=== PATIENT | female | born 1970 | race Caucasian/White ===

== ENCOUNTER 2016-11-09 21:28 | Emergency (ER) | payer SELFPAY ==
[2016-11-09 21:52] VITALS: BP 122/85
[2016-11-09] MEDS ORDERED: CEPHALEXIN 500 MG CAPSULE PO ONE (23:39)
[2016-11-09] MEDS ORDERED: DOXYCYCLINE HYCLATE 100 MG TABLET PO ONE (23:39)
--- NOTE | 2016-11-09 23:41 | ER Document Report ---
ED General - General Chief Complaint: Abscess Stated Complaint: POSSIBLE ABSCESS RIGHT ARMPIT Time Seen by Provider: 11/09/16 22:47 Notes: Patient is a 46-year-old female without past medical history who presents with concerns of right axillary abscess with associated cellulitis. Patient states that she had an area of swelling to her right axilla for the past several days as of now developed a progressively worsening area of erythema associated with the area of swelling. Denies any history of similar symptoms in the past. States she came to emergency department when she noticed the area of redness was spreading. She denies any associated fever or constitutional symptoms. Does describe pain there is a severe, constant, throbbing pain. She has not seen her primary care doctor regarding today's concerns. Nothing improves or worsens her symptoms. TRAVEL OUTSIDE OF THE [place] IN LAST 30 DAYS: No - Related Data Allergies/Adverse Reactions: Sulfa (Sulfonamide Antibiotics) Allergy (Verified 07/16/15 21:28) Past Medical History - General Information source: Patient - Social History Smoking Status: Never Smoker Frequency of alcohol use: None Drug Abuse: None Lives with: Spouse/Significant other Family History: Reviewed & Not Pertinent Patient has suicidal ideation: No Patient has homicidal ideation: No Renal/ Medical History: Reports: Hx Ectopic . Denies: Hx Peritoneal Dialysis Malignancy Medical History: Reports: Hx Skin Cancer Past Surgical History: Reports: Hx Gynecologic Surgery - fallopian tubes removed Review of Systems - Review of Systems Notes: Constitutional: Negative for fever. HENT: Negative for sore throat. Eyes: Negative for visual changes. Cardiovascular: Negative for chest pain. Respiratory: Negative for shortness of breath. Gastrointestinal: Negative for abdominal pain, vomiting or diarrhea. Genitourinary: Negative for dysuria. Musculoskeletal: Negative for back pain. Skin: Positive for rash. Neurological: Negative for headaches, weakness or numbness. 10 point ROS negative except as marked above and in HPI. Physical Exam - Vital signs Vitals: Temp Pulse Resp BP Pulse Ox 98.8 F 65 16 122/85 98 11/09/16 21:49 11/09/16 21:49 11/09/16 21:49 11/09/16 21:49 11/09/16 21:49 Interpretation: Normal Notes: PHYSICAL EXAMINATION: GENERAL: Well-appearing, well-nourished and in no acute distress. HEAD: Atraumatic, normocephalic. EYES: sclera anicteric, conjunctiva are normal. ENT: Moist mucous membranes. NECK: Normal range of motion LUNGS: Normal work of breathing HEART: 2+ radial pulses bilaterally EXTREMITIES: no pitting or edema. No cyanosis. NEUROLOGICAL: No focal neurological deficits. Moves all extremities spontaneously and on command. PSYCH: Normal mood, normal affect. SKIN: Warm, Dry, normal turgor, there is a 0.5 x 0.5 abscess to the lateral right axilla with a 1 x 2 cm area of associated erythema Course - Re-evaluation Re-evalutation: 11/09/16 23:37 Patient presents with a right axillary abscess with surrounding cellulitis. The abscess was incised and drained with expression of 1 cc of purulent material. The patient will be started on doxycycline and Keflex for strep and MRSA coverage. Patient is otherwise well in appearance, vitals within normal limits, no acute distress. She does not meet sepsis criteria. No indication for labs or IV antibiotics with admission. At this time will discharge with return precautions and follow-up recommendations. Verbal discharge instructions given a the bedside and opportunity for questions given. Medication warnings reviewed. Patient is in agreement with this plan and has verbalized understanding of return precautions and the need for primary care follow-up in the next 24-72 hours. - Vital Signs Vital signs: Temp Pulse Resp BP Pulse Ox 98.8 F 65 16 122/85 98 11/09/16 21:49 11/09/16 21:49 11/09/16 21:49 11/09/16 21:49 11/09/16 21:49 Procedures - Incision and Drainage Right Arm Time completed: 23:39 Type: Simple Anesthetic type: 1% Lidocaine mL's of anesthetic: 1 Blade size: 11 I&D procedure: Chlorprep applied Incision Method: Incision made by scalpel Amount/type of drainage: 1 cc purulent material Discharge - Discharge Clinical Impression: Abscess of right axilla, Cellulitis of right arm Condition: Good Disposition: HOME, SELF-CARE Additional Instructions: The rash is likely due to infection of your skin. You need to take the antibiotics as prescribed. Do not stop even if the rash goes away until you have completed all the antibiotics. The area of redness was traced out here in the emergency department with a marking pen. You need to return to emergency department if the redness spreads outside of this area by more than 2 cm in any direction. You should also return if you develop fevers with temperature greater than 101, persistent vomiting, worsening pain, or have any other symptoms that are concerning to you. Prescriptions: Cephalexin Monohydrate [Keflex 500 mg Capsule] 500 mg PO QID #28 capsule Doxycycline Hyclate 100 mg PO BID #14 tablet
== END 2016-11-10 00:02 | disposition home or self-care (01) ==
LOC: ER 21:28
PROC: 0H9BXZZ Drainage of Right Upper Arm Skin, External Approach (ICD-10-PCS; principal; 2016-11-09)
DX: L02.411 Cutaneous abscess of right axilla (principal); L03.111 Cellulitis of right axilla; M79.89 Other specified soft tissue disorders; R50.9 Fever, unspecified
CPT/HCPCS: 99283

== ENCOUNTER 2017-08-02 18:52 | Emergency (ER) | payer SELFPAY ==
[2017-08-02] MEDS ORDERED: METOCLOPRAMIDE HCL 10 MG TABLET PO ONE (20:58)
[2017-08-02] MEDS ORDERED: ACETAMINOPHEN 325 MG TABLET PO ONE (20:58)
--- NOTE | 2017-08-02 21:04 | ER Document Report ---
ED Fall - General Chief Complaint: Fall Stated Complaint: FALL/LEG INJURY Time Seen by Provider: 08/02/17 20:37 Mode of Arrival: Ambulatory Information source: Patient TRAVEL OUTSIDE OF THE [place] IN LAST 30 DAYS: No - HPI Patient complains to provider of: fall, headache, right leg pain Notes: Patient is here with complaints of headache and right leg pain after falling. She states that she was seen on a chair trying to kill mosquito last evening when she swallowed she fell backwards and hit the right aspect of her posterior head on the corner of a shower. She is not quite sure if she had loss of consciousness but from what she describes to me, it does not sound as if she did. She states that she has had a headache and nausea with blurred vision since this occurred. She denies being on any blood thinning medications. She has had no vomiting, but states that she cannot vomit due to prior Regina fundoplication. She denies any neck, back, chest, abdominal pain. She denies any unilateral numbness, tingling, weakness. She denies any fevers. She also complains of pain to the right posterior knee. She is able to ambulate and walk but with pain. No redness or swelling. Patient's headache is worse with light as well as walking, her right knee pain is worse with walking. Nothing seems to make her symptoms better. No other complaints or no other injuries at this time. - Related data Allergies/Adverse Reactions: Sulfa (Sulfonamide Antibiotics) Allergy (Verified 07/16/15 21:28) Past Medical History - Social History Smoking Status: Never Smoker Chew tobacco use (# tins/day): No Drug Abuse: None Family History: Reviewed & Not Pertinent Patient has suicidal ideation: No Patient has homicidal ideation: No Renal/ Medical History: Reports: Hx Ectopic . Denies: Hx Peritoneal Dialysis Malignancy Medical History: Reports: Hx Skin Cancer Past Surgical History: Reports: Hx Appendectomy, Hx Gynecologic Surgery - ectopic-tubal removal x2, Hx Orthopedic Surgery - left elbow, eye surgery Review of Systems - Review of Systems -: Yes All other systems reviewed and negative Physical Exam - Vital signs Vitals: Temp Pulse Resp BP Pulse Ox 97.7 F 66 18 122/71 99 08/02/17 19:05 08/02/17 19:05 08/02/17 19:05 08/02/17 19:05 08/02/17 19:05 - Notes Notes: GENERAL: alert, cooperative, nontoxic, no distress. HEAD: normocephalic, atraumatic EYES: conjunctiva pink without discharge, no external redness or swelling. Right pupil slightly larger than the left. EOM'S INTACT EARS: no external swelling, no external redness. No hemotympanum NOSE: atraumatic, no external swelling. No bleeding MOUTH/THROAT: mucous membranes moist and pink, posterior pharynx without erythema, swelling, exudate. No trismus or drooling. NECK: soft, supple, full range of motion, no meningismus. No midline tenderness step-offs or crepitus to palpation of the cervical spine. CHEST: no distress, lungs clear and equal throughout. No wheezing, rales, rhonchi. CARDIAC: regular rate and rhythm, no murmur, normal capillary refill, normal pulses. No peripheral edema noted. ABDOMEN: Soft, nontender. No ecchymosis. BACK: full range of motion, no CVA tenderness. No midline tenderness step-offs or crepitus to palpation of the thoracic or lumbar spine. EXTREMITIES: full range of motion of all extremities. No redness, no swelling. Tenderness to palpation of the right posterior knee. No swelling. No redness. No anterior tenderness. Full range of motion. No ligament instability. Normal pulse and sensation distally. NEURO: alert and oriented x 3, no focal deficits, full range of motion of all extremities. Cranial nerves II through XII are grossly intact. Normal sensation bilaterally. Normal strength bilaterally. PYSCH: appropriate mood, affect. Patient is cooperative. SKIN: pink, warm, dry, no rash. Course - Re-evaluation Re-evalutation: 08/02/17 22:43 Patient is nontoxic appearing with stable vitals. The patient fell hitting her head and injuring her leg last evening. She continues to have headache, blurred vision and nausea. CT of the brain shows no acute abnormality per the radiologist. X-rays of the right knee show no acute abnormality. The patient has a mild concussion. Patient will be discharged home with a prescription for Voltaren as well as Zofran. She is instructed to rest her brain as much as possible. Follow-up with her doctor if not better in 1 week, sooner for increasing pain, fever, numbness, tingling, weakness, persistent vomiting, or for any further concerns. The patient is noted to have elevated blood pressure during today's emergency department visit. The patient was informed of this finding. The patient was instructed that this may be related to pre-hypertension and requires further evaluation with a primary care provider. The patient has no hypertensive symptoms at this time. The patient's emergency department workup and current diagnosis were explained to the patient and or family. Follow-up instructions were provided. Medications if prescribed were discussed. Instructions for when to return to the emergency department including specific worrisome symptoms were discussed with the patient and/or family. - Vital Signs Vital signs: Temp Pulse Resp BP Pulse Ox 97.7 F 66 18 122/71 99 08/02/17 19:05 08/02/17 19:05 08/02/17 19:05 08/02/17 19:05 08/02/17 19:05 - Diagnostic Test Radiology reviewed: Image reviewed, Reports reviewed - CT brain negative, x-ray right knee negative. Discharge - Discharge Clinical Impression: Head injury, closed, with concussion Qualifiers: Encounter type: initial encounter Loss of consciousness presence/duration: without LOC Qualified Code(s): S06.0X0A - Concussion without loss of consciousness, initial encounter Right knee sprain Qualifiers: Encounter type: initial encounter Involved ligament of knee: unspecified ligament Qualified Code(s): S83.91XA - Sprain of unspecified site of right knee , initial encounter Condition: Stable Disposition: HOME, SELF-CARE Instructions: Ice & Elevation ([facility]), Sprained Knee ([facility]), Concussion ([facility]) Additional Instructions: Take medication as prescribed. Drink plenty of fluids. Ice to sore area. Rest her brain as much as possible. Follow-up if not better in 1 week, sooner for worsening pain, fever, persistent vomiting, numbness, tingling, weakness, chest pain, shortness of breath, any further concerns. Your blood pressure was elevated during today's visit. Have this rechecked with your doctor. Prescriptions: Diclofenac Sodium [Voltaren 50 Mg Tablet.] 50 mg PO BID #20 tablet. Ondansetron HCl [Zofran 4 mg Tablet] 1 - 2 tab PO Q4H PRN #10 tablet PRN Reason: Forms: Elevated Blood Pressure, Smoking Cessation Education, Return to Work Referrals: [facility] [Provider Group] - Follow up as needed
--- NOTE | 2017-08-02 22:23 | RADIOLOGY REPORT (SQ) ---
EXAM DESCRIPTION: KNEE RIGHT 4 VIEWS COMPLETED DATE/TIME: 08/02/2017 9:53 pm REASON FOR STUDY: fall, posterior pain COMPARISON: None. NUMBER OF VIEWS: Four views. TECHNIQUE: AP, lateral, and both oblique radiographic images acquired of the right knee. LIMITATIONS: None. FINDINGS: MINERALIZATION: Normal. BONES: No acute fracture or dislocation. No worrisome bone lesions. JOINT: No effusion. SOFT TISSUES: No soft tissue swelling. No radio-opaque foreign body. OTHER: No other significant finding. IMPRESSION: NO RADIOGRAPHIC EVIDENCE OF ACUTE INJURY. TECHNICAL DOCUMENTATION: JOB ID: [id number] [place]-72 2010 [employer]- All Rights Reserved Reading location - IP/workstation name: [employer]
--- NOTE | 2017-08-02 22:27 | RADIOLOGY REPORT (SQ) ---
EXAM DESCRIPTION: CT HEAD WITHOUT COMPLETED DATE/TIME: 08/02/2017 10:05 pm REASON FOR STUDY: fall, head injury, nausea, headache COMPARISON: None. TECHNIQUE: Axial images acquired through the brain without intravenous contrast. Images reviewed wi th bone, brain and subdural windows. Images stored on PACS. All CT scanners at this facility use dose modulation, iterative reconstruction, and/or weight based d osing when appropriate to reduce radiation dose to as low as reasonably achievable (ALARA). [facility]: Dose Right [facility]: CareDose [facility]: Dose Right [facility]: Teradose 4D [facility]: Smart Subway RADIATION DOSE: CT Rad equipment meets quality standard of care and radiation dose reduction techniq ues were employed. CTDIvol: 53.2 mGy. DLP: 937 mGy-cm. mGy. LIMITATIONS: None. FINDINGS: VENTRICLES: Normal size and contour. CEREBRUM: No masses. No hemorrhage. No midline shift. No evidence for acute infarction. Normal gra y/white matter differentiation. No areas of low density in the white matter. CEREBELLUM: No masses. No hemorrhage. No alteration of density. No evidence for acute infarction. EXTRAAXIAL SPACES: No fluid collections. No masses. ORBITS AND GLOBE: No intra- or extraconal masses. Normal contour of globe without masses. Chronic s urgical changes in the right orbital floor. CALVARIUM: No fracture. PARANASAL SINUSES: No fluid or mucosal thickening. SOFT TISSUES: No mass or hematoma. OTHER: No other significant finding. IMPRESSION: No acute intracranial findings. EVIDENCE OF ACUTE STROKE: NO. COMMENT: Quality ID # [id number]: Final reports with documentation of one or more dose reduction techniques (e.g., Automated exposure control, adjustment of the mA and/or kV according to patient size, use of iterative reconstruction technique) TECHNICAL DOCUMENTATION: JOB ID: [id number] [place]-72 2010 [employer]- All Rights Reserved Reading location - IP/workstation name: [email or web address]
[2017-08-02 23:27] VITALS: BP 111/71
== END 2017-08-02 23:27 | disposition home or self-care (01) ==
LOC: ER 18:52
DX: S83.91XA Sprain of unspecified site of right knee, initial encounter (principal); S06.0X0A Concussion without loss of consciousness, initial encounter; R51 Headache; M79.604 Pain in right leg; W01.198A Fall on same level from slipping, tripping and stumbling with subsequent striking against other object, initial encounter; Z88.2 Allergy status to sulfonamides
CPT/HCPCS: 70450; 99284

== ENCOUNTER 2018-12-15 21:15 | Emergency (ER) | payer OTHER ==
[2018-12-15 22:07] LABS: ABSOLUTE BASOPHILS # (AUTO) 0.1 10^3/uL (0.0-0.2); ABSOLUTE EOSINOPHILS # (AUTO) 0.2 10^3/uL (0.0-0.6); ABSOLUTE LYMPHOCYTES (AUTO) 2.3 10^3/uL (0.5-4.7); ABSOLUTE MONOCYTES (AUTO) 0.6 10^3/uL (0.1-1.4); ABSOLUTE NEUT (AUTO) 7.7 10^3/uL (1.7-8.2); BASOPHILS % (AUTO) 0.5 % (0-2); EOSINOPHILS % (AUTO) 1.4 % (0-6); HEMATOCRIT 30.2 % (36.0-47.0); HEMOGLOBIN 10.4 g/dL (12.0-15.5); LYMPHOCYTES % (AUTO) 21.3 % (13-45); MEAN CORPUSCULAR HEMOGLOBIN 30.1 pg (27.0-33.4); MEAN CORPUSCULAR HGB CONC 34.4 g/dL (32.0-36.0); MEAN CORPUSCULAR VOLUME 88 fl (80-97); MONOCYTES % (AUTO) 5.2 % (3-13); PLATELET COUNT 298 10^3/uL (150-450); RED BLOOD COUNT 3.45 10^6/uL (3.72-5.28); RED CELL DISTRIBUTION WIDTH 12.1 % (11.5-14.0); SEGMENTED NEUTROPHILS % (AUTO) 71.6 % (42-78); TOTAL CELLS COUNTED % (AUTO) 100 %; WHITE BLOOD COUNT 10.8 10^3/uL (4.0-10.5)
[2018-12-15 22:14] LABS: ALBUMIN 3.7 g/dL (3.5-5.0); ALKALINE PHOSPHATASE 39 U/L (38-126); ANION GAP 9 (5-19); ASPARTATE AMINO TRANSFERASE 19 U/L (14-36); BILIRUBIN,DIRECT 0.1 mg/dL (0.0-0.4); BILIRUBIN,TOTAL 0.5 mg/dL (0.2-1.3); BLOOD UREA NITROGEN 42 mg/dL (7-20); CARBON DIOXIDE 24 mmol/L (22-30); CHLORIDE 103 mmol/L (98-107); CREATINE KINASE 118 U/L (30-135); GLUCOSE 122 mg/dL (75-110); POTASSIUM 4.1 mmol/L (3.6-5.0); TOTAL PROTEIN 6.3 g/dL (6.3-8.2)
[2018-12-15] MEDS: NORMAL SALINE 1000 ML 1,000 ML IV PRN ×2 (22:14→23:08)
--- NOTE | 2018-12-15 22:45 | RADIOLOGY REPORT (SQ) ---
XR CHEST 1 VIEW EXAM DATE: 12/15/2018 12:00 AM CDT HISTORY: Syncope. COMPARISON: 07/16/2015 FINDINGS: The heart size is within normal limits. No consolidation, pleural effusion, or pneumothorax is seen. The bony thorax is intact. IMPRESSION: No evidence of acute cardiopulmonary disease.
[2018-12-15 23:38] LABS: APPEARANCE,URINE CLEAR; BILIRUBIN,URINE NEGATIVE (NEGATIVE); COLOR,URINE YELLOW; GLUCOSE, URINE NEGATIVE (NEGATIVE); KETONES,URINE 20 mg/dL (NEGATIVE); LEUKOCYTE ESTERASE,URINE NEGATIVE (NEGATIVE); NITRITE,URINE NEGATIVE (NEGATIVE); PROTEIN,URINE NEGATIVE (NEGATIVE); URINE SPECIFIC GRAVITY 1.023; UROBILINOGEN,URINE NEGATIVE mg/dL (<2.0)
[2018-12-16] MEDS ORDERED: PANTOPRAZOLE SODIUM 40 MG VIAL IV ONE (00:17)
[2018-12-16] MEDS ORDERED: NORMAL SALINE 1000 ML 1,000 ML IV ONE (00:18)
[2018-12-16 01:00] LABS: ABSOLUTE LYMPHOCYTES (AUTO) 1.4 10^3/uL (0.5-4.7); ABSOLUTE MONOCYTES (AUTO) 0.3 10^3/uL (0.1-1.4); ABSOLUTE NEUT (AUTO) 7.6 10^3/uL (1.7-8.2); BASOPHILS % (AUTO) 0.5 % (0-2); EOSINOPHILS % (AUTO) 0.4 % (0-6); HEMATOCRIT 26.7 % (36.0-47.0); LYMPHOCYTES % (AUTO) 14.6 % (13-45); MEAN CORPUSCULAR HEMOGLOBIN 29.9 pg (27.0-33.4); MEAN CORPUSCULAR HGB CONC 33.9 g/dL (32.0-36.0); MEAN CORPUSCULAR VOLUME 88 fl (80-97); MONOCYTES % (AUTO) 3.1 % (3-13); PLATELET COUNT 167 10^3/uL (150-450); RED BLOOD COUNT 3.02 10^6/uL (3.72-5.28); RED CELL DISTRIBUTION WIDTH 12.6 % (11.5-14.0); SEGMENTED NEUTROPHILS % (AUTO) 81.4 % (42-78); TOTAL CELLS COUNTED % (AUTO) 100 %; WHITE BLOOD COUNT 9.3 10^3/uL (4.0-10.5)
[2018-12-16] MEDS ORDERED: PANTOPRAZOLE SODIUM 40 MG VIAL IV PRN (01:16)
[2018-12-16 01:25] LABS: INTERNATIONAL RATION (INR) 1.16; PROTHROMBIN TIME 14.9 SEC (11.4-15.4)
[2018-12-16 01:26] LABS: PARTIAL THROMBOPLASTIN TIME 24.1 SEC (23.5-35.8)
[2018-12-16 04:48] VITALS: BP 112/50
--- NOTE | 2018-12-16 04:52 | ER Document Report ---
Entered by CHANDRA PENA SCRIBE 12/16/18 0017 Acting as scribe for:GURU TONEY DO ED Dizziness/Weakness - General Chief Complaint: Fainting Stated Complaint: DIZZINESS Time Seen by Provider: 12/15/18 21:53 Primary Care Provider: AMY MENDOZA DO [Primary Care Provider] - Follow up as needed Mode of Arrival: Ambulatory Information source: Patient Notes: 48 year old female that presents to the emergency department today with complaints of multiple episodes of dizziness/lightheadedness today. Patient mentions that she went to take the trash out today and "everything flushed out of her body". Patient states that she has a chair right inside her front door. Patient states she was returning from taking the trash out and "the next thing she remembers is sitting in the chair". Patient states she has had loose black stool today. Patient denies any usage of blood thinning medications or pain of any type. Apparently had surgery on her esophagus 15 to 20 years ago and had a procedure in which she states that she cannot vomit. Sounds like a Regina fundoplication. Patient is not sure what the name of this procedure was. TRAVEL OUTSIDE OF THE [place] IN LAST 30 DAYS: No - Related Data Allergies/Adverse Reactions: Sulfa (Sulfonamide Antibiotics) Allergy (Verified 07/16/15 21:28) Past Medical History - General Information source: Patient - Social History Smoking Status: Never Smoker Cigarette use (# per day): No Frequency of alcohol use: None Drug Abuse: None Family History: Reviewed & Not Pertinent Patient has suicidal ideation: No Patient has homicidal ideation: No Renal/ Medical History: Reports: Hx Ectopic Malignancy Medical History: Reports: Hx Skin Cancer Past Surgical History: Reports: Hx Appendectomy, Hx Gynecologic Surgery - ectopic-tubal removal x2, Hx Orthopedic Surgery - left elbow, eye surgery Review of Systems - Review of Systems Constitutional: No symptoms reported EENT: No symptoms reported Cardiovascular: See HPI, Syncope, Dizziness, Lightheaded Respiratory: No symptoms reported Gastrointestinal: See HPI, Diarrhea, Nausea, Black stools. denies: Abdominal pain, Vomiting Genitourinary: No symptoms reported Female Genitourinary: No symptoms reported Musculoskeletal: No symptoms reported Skin: No symptoms reported Hematologic/Lymphatic: No symptoms reported Neurological/Psychological: No symptoms reported -: Yes All other systems reviewed and negative Physical Exam - Vital signs Vitals: Temp Pulse Resp BP Pulse Ox 97.5 F 81 14 96/53 L 100 12/15/18 21:26 12/15/18 21:26 12/15/18 21:26 12/15/18 21:26 12/15/18 21:26 Interpretation: Hypotensive - General General appearance: Lethargic In distress: Moderate - HEENT Head: Normocephalic, Atraumatic Mucous membranes: Dry - Respiratory Respiratory status: No respiratory distress Breath sounds: Normal - Cardiovascular Rhythm: Regular - Abdominal Inspection: Normal Tenderness: Nontender - Rectal Tenderness: No Stool: Heme positive, Black. No: Bloody Hemorrhoids: External - Extremities General upper extremity: Normal inspection, Nontender, Normal ROM General lower extremity: Normal inspection, Nontender, Normal color, Normal ROM, Normal temperature - Neurological Neuro grossly intact: Yes Cognition: Normal Orientation: AAOx4 Edward Coma Scale Eye Opening: Spontaneous Edward Coma Scale Verbal: Oriented Edward Coma Scale Motor: Obeys Commands Edward Coma Scale Total: 15 Speech: Normal Motor strength normal: LUE, RUE, LLE, RLE Sensory: Normal - Psychological Associated symptoms: Other - Drowsy but arousable - Skin Skin Temperature: Cool Skin Moisture: Dry Course - Re-evaluation Re-evalutation: 12/16/18 01:18 Dr. Reardon accepts patient for transfer to [facility] Patient is a 48-year-old female who comes in after 3 episodes of syncope at home. Patient states that every time she stands up she becomes very lightheaded. States that she had an episode of dark diarrhea today. Patient states that she occasionally takes ibuprofen. No aspirin. Voltaren is on medic ation list with patient states that she no longer takes it. Patient was nauseated but did not vomit. States that she cannot because of his surgery she had for severe reflux 15 to 20 years ago. Sounds like a Regina fundoplication but the patient is unsure of the procedure, who did it. She has not had any complications from it. Denies any pain anywhere. Stool is Hemoccult positive. Patient has been hypotensive but has responded to 3 L of fluid resuscitation. Given dark stool, history of procedure, and concern for GI bleed, will be transferred for further evaluation. No gastroenterology available at this facility. Patient is agreeable to this 12/16/18 04:45 Transport is here. Medically stable for transfer. - Vital Signs Vital signs: Temp Pulse Resp BP Pulse Ox 98.0 F 81 15 112/50 L 98 12/16/18 01:43 12/15/18 21:26 12/16/18 04:31 12/16/18 04:31 12/16/18 04:31 - Laboratory Result Diagrams: 12/16/18 00:40 12/15/18 21:25 Laboratory results interpreted by me: 12/15/18 12/15/18 12/15/18 21:25 21:25 23:24 WBC 10.8 H RBC 3.45 L Hgb 10.4 L Hct 30.2 L Seg Neutrophils % Sodium 135.9 L BUN 42 H Glucose 122 H Urine Ketones 20 H 12/16/18 00:40 WBC RBC 3.02 L Hgb 9.0 L Hct 26.7 L Seg Neutrophils % 81.4 H Sodium BUN Glucose Urine Ketones - Diagnostic Test Radiology reviewed: Reports reviewed Critical Care Note - Critical Care Note Total time excluding time spent on procedures (mins): 45 - Evaluation and management of hypotension, GI bleed, coronation of transfer, multiple re- evaluations, counseling of patient Discharge - Discharge Clinical Impression: GI bleeding Qualifiers: GI bleed type/associated pathology: unspecified gastrointestinal hemorrhage t ype Qualified Code(s): K92.2 - Gastrointestinal hemorrhage, unspecified Condition: Stable Disposition: [facility] Referrals: AMY MENDOZA DO [Primary Care Provider] - Follow up as needed Scribe Attestation: 12/16/18 04:51 I personally performed the services described in the documentation, reviewed and edited the documentation which was dictated to the scribe in my presence, and it accurately records my words and actions. I personally performed the services described in the documentation, reviewed and edited the documentation which was dictated to the scribe in my presence, and it accurately records my words and actions.
== END 2018-12-16 04:48 | disposition short-term general hospital (02) ==
LOC: ER 21:15
DX: K92.2 Gastrointestinal hemorrhage, unspecified (principal); R42 Dizziness and giddiness; R55 Syncope and collapse; R11.0 Nausea; R19.7 Diarrhea, unspecified; K64.4 Residual hemorrhoidal skin tags; R40.0 Somnolence; Z87.19 Personal history of other diseases of the digestive system; Z98.890 Other specified postprocedural states; Z88.2 Allergy status to sulfonamides
CPT/HCPCS: 36415; 82550; 85025; 85610; 85730; 80053; 81001; 84484; 71045; S0164; J7030 ×2

== ENCOUNTER → 2019-05-02 | Outpatient (CLI) | payer OTHER ==
--- NOTE | 2019-05-02 09:24 | RADIOLOGY REPORT (SQ) ---
EXAM DESCRIPTION: SHOULDER RIGHT 2 OR MORE VIEWS COMPLETED DATE/TIME: 05/02/2019 9:11 am REASON FOR STUDY: ACUTE PAIN OF RT SHOULDER M25.511 PAIN IN RIGHT SHOULDER COMPARISON: None. NUMBER OF VIEWS: Three views. TECHNIQUE: Internal rotation, external rotation, and Y view images acquired of the right shoulder. LIMITATIONS: None. FINDINGS: MINERALIZATION: Normal. BONES: No acute fracture. No worrisome bone lesions. JOINTS: No dislocation. VISUALIZED LUNGS AND RIBS: No pneumothorax. No rib fracture. SOFT TISSUES: No radiopaque foreign body. OTHER: No other significant finding. IMPRESSION: 1. No acute osseous findings. TECHNICAL DOCUMENTATION: JOB ID: [id number] [employer]- All Rights Reserved Reading location - IP/workstation name: [email or web address]
== END ==
LOC: OD 09:01
PROVIDERS: ATTEND Nurse Practitioner Family
DX: M25.511 Pain in right shoulder (principal)

== ENCOUNTER 2019-10-24 19:41 | Emergency (ER) | payer OTHER ==
--- NOTE | 2019-10-24 21:05 | ER Document Report ---
ED Medical Screen (RME) - General Chief Complaint: Headache, Worst Ever Stated Complaint: HEADACHE, NAUSEA Time Seen by Provider: 10/24/19 21:01 Primary Care Provider: MARGE MUNSON FNP [Primary Care Provider] - Follow up as needed Information source: Patient Notes: This is a 49-year-old female with a longstanding history of migraine headaches. However she states that this headache that she has had over the last 4 days is the worst headache she is ever had she is had a lot of pressure behind the right eye and in the right temporal area she is pretty unusual for her. She also stat es she smacked her head in her office about 2 months ago so hard she nearly passed out was rather concerned about that as well. Does have photophobia she does not have any nausea vomiting no nuchal rigidity. TRAVEL OUTSIDE OF THE [place] IN LAST 30 DAYS: No - Related Data Allergies/Adverse Reactions: Sulfa (Sulfonamide Antibiotics) Allergy (Verified 07/16/15 21:28) Past Medical History Renal/ Medical History: Reports: Hx Ectopic . Denies: Hx Peritoneal Dialysis Malignancy Medical History: Reports: Hx Skin Cancer Past Surgical History: Reports: Hx Appendectomy, Hx Gynecologic Surgery - ectopic-tubal removal x2, Hx Orthopedic Surgery - left elbow, eye surgery Physical Exam - Vital signs Vitals: Temp Pulse Resp BP Pulse Ox 98.9 F 64 16 127/67 H 100 10/24/19 20:47 10/24/19 20:47 10/24/19 20:47 10/24/19 20:47 10/24/19 20:47 Course - Vital Signs Vital signs: Temp Pulse Resp BP Pulse Ox 98.9 F 64 16 127/67 H 100 10/24/19 20:47 10/24/19 20:47 10/24/19 20:47 10/24/19 20:47 10/24/19 20:47 Doctor's Discharge - Discharge Referrals: MARGE MUNSON FNP [Primary Care Provider] - Follow up as needed
[2019-10-24 21:35] LABS: ABSOLUTE BASOPHILS # (AUTO) 0.1 10^3/uL (0.0-0.2); ABSOLUTE EOSINOPHILS # (AUTO) 0.3 10^3/uL (0.0-0.6); ABSOLUTE MONOCYTES (AUTO) 0.4 10^3/uL (0.1-1.4); ABSOLUTE NEUT (AUTO) 2.9 10^3/uL (1.7-8.2); EOSINOPHILS % (AUTO) 4.4 % (0-6); HEMATOCRIT 36.3 % (36.0-47.0); HEMOGLOBIN 12.6 g/dL (12.0-15.5); LYMPHOCYTES % (AUTO) 44.4 % (13-45); MEAN CORPUSCULAR HEMOGLOBIN 30.5 pg (27.0-33.4); MEAN CORPUSCULAR HGB CONC 34.8 g/dL (32.0-36.0); MEAN CORPUSCULAR VOLUME 88 fl (80-97); MONOCYTES % (AUTO) 6.5 % (3-13); PLATELET COUNT 319 10^3/uL (150-450); RED BLOOD COUNT 4.15 10^6/uL (3.72-5.28); RED CELL DISTRIBUTION WIDTH 12.6 % (11.5-14.0); SEGMENTED NEUTROPHILS % (AUTO) 43.7 % (42-78); TOTAL CELLS COUNTED % (AUTO) 100 %; WHITE BLOOD COUNT 6.7 10^3/uL (4.0-10.5)
--- NOTE | 2019-10-24 21:51 | RADIOLOGY REPORT (SQ) ---
CT HEAD WITHOUT IV CONTRAST HISTORY: Headache for 4 days. COMPARISON: 08/02/2017 TECHNIQUE: CT scan of the brain was performed without IV contrast. This exam was performed according to our departmental dose-optimization program, which includes automated exposure control, adjustment of the mA and/or kV according to patient size and/or use of iterative reconstruction technique. FINDINGS: The ventricles, cisterns, and sulci are age-appropriate. No evidence of acute infarction, intracranial hemorrhage, extra-axial fluid collection, or midline shift. No air-fluid levels are seen in the paranasal sinuses to suggest acute sinusitis. No depressed skull fracture. IMPRESSION: No acute intracranial findings.
[2019-10-24 21:52] LABS: ALBUMIN 4.3 g/dL (3.5-5.0); ALKALINE PHOSPHATASE 52 U/L (38-126); ANION GAP 8 (5-19); ASPARTATE AMINO TRANSFERASE 20 U/L (14-36); BILIRUBIN,TOTAL 0.2 mg/dL (0.2-1.3); BLOOD UREA NITROGEN 18 mg/dL (7-20); CALCIUM 9.4 mg/dL (8.4-10.2); CARBON DIOXIDE 25 mmol/L (22-30); CHLORIDE 103 mmol/L (98-107); GLUCOSE 96 mg/dL (75-110); POTASSIUM 4.1 mmol/L (3.6-5.0); TOTAL PROTEIN 7.7 g/dL (6.3-8.2)
[2019-10-24 23:05] LABS: APPEARANCE,URINE CLEAR; BILIRUBIN,URINE NEGATIVE (NEGATIVE); COLOR,URINE YELLOW; GLUCOSE, URINE NEGATIVE (NEGATIVE); KETONES,URINE NEGATIVE (NEGATIVE); LEUKOCYTE ESTERASE,URINE TRACE (NEGATIVE); NITRITE,URINE NEGATIVE (NEGATIVE); PROTEIN,URINE NEGATIVE (NEGATIVE); URINE SPECIFIC GRAVITY 1.021
[2019-10-25] MEDS ORDERED: NITROFURANTOIN MONOHYD/M-CRYST 100 MG CAPSULE PO ONE (00:06)
[2019-10-25] MEDS ORDERED: METOCLOPRAMIDE HCL 10 MG TABLET PO ONE (00:06)
[2019-10-25] MEDS ORDERED: HYDROCODONE/ACETAMINOPHEN 5-325 MG (6 TAB/ER DISP) PO PRN (00:08)
[2019-10-25 00:17] VITALS: BP 121/76
--- NOTE | 2019-10-25 00:22 | ER Document Report ---
Entered by VIOLA CRAIN SCRIBE 10/24/19 [id number] Acting as scribe for:SRAVAN ROTH IV, MD ED Headache - General Chief Complaint: Headache Stated Complaint: HEADACHE, NAUSEA Time Seen by Provider: 10/24/19 21:01 Primary Care Provider: MARGE MUNSON FNP [Primary Care Provider] - Follow up as needed Mode of Arrival: Ambulatory Information source: Patient Notes: This 49 year old female patient with a history of migraines presents to the ED today with a headache since 10/01/2019. Patient states that the pain is constant and localized behind both of her eyes, worse on the left side. She notes associated nausea and photophobia. She reports that she was evaluated x9 days after symptom onset and received a shot of Toradol and was started on Imitrex. She states that her headache persisted despite the medications, so she had a tele-health visit with her PCP who started her on Butalbital and Propanolol. She notes that her PCP is attempting to get her a referral to a neurologist. She states that she was also concerned about the headache because she hit the middle of her forehead on a corner of cabinet while at work x2.5 months ago. TRAVEL OUTSIDE OF THE [place] IN LAST 30 DAYS: No - Related Data Allergies/Adverse Reactions: Sulfa (Sulfonamide Antibiotics) Allergy (Verified 07/16/15 21:28) Home Medications: propranolol,butal, Past Medical History - General Information source: Patient - Social History Smoking Status: Never Smoker Cigarette use (# per day): No Chew tobacco use (# tins/day): No Smoking Education Provided: No Family History: Reviewed & Not Pertinent Patient has suicidal ideation: No Patient has homicidal ideation: No Neurological Medical History: Reports: Hx Migraine Renal/ Medical History: Reports: Hx Ectopic Malignancy Medical History: Reports: Hx Skin Cancer Past Surgical History: Reports: Hx Appendectomy, Hx Gynecologic Surgery - ectopic-tubal removal x2, Hx Orthopedic Surgery - left elbow, eye surgery Review of Systems - Review of Systems Constitutional: No symptoms reported EENT: See HPI, Other - Photophobia Cardiovascular: No symptoms reported Respiratory: No symptoms reported Gastrointestinal: See HPI, Nausea Genitourinary: No symptoms reported Female Genitourinary: No symptoms reported Musculoskeletal: No symptoms reported Skin: No symptoms reported Hematologic/Lymphatic: No symptoms reported Neurological/Psychological: See HPI, Headaches -: Yes All other systems reviewed and negative Physical Exam - Vital signs Vitals: Temp Pulse Resp BP Pulse Ox 98.9 F 64 16 127/67 H 100 10/24/19 20:47 10/24/19 20:47 10/24/19 20:47 10/24/19 20:47 10/24/19 20:47 - General General appearance: Alert In distress: None - HEENT Head: Normocephalic, Atraumatic Eyes: Normal, Other - No photophobia appreciated Pupils: PERRL Neck: Normal. No: Meningismus - Respiratory Respiratory status: No respiratory distress Chest status: Nontender Breath sounds: Normal Chest palpation: Normal - Cardiovascular Rhythm: Regular Heart sounds: Normal auscultation Murmur: No Friction rub: No Gallop: None auscultated - Abdominal Inspection: Normal Distension: No distension Bowel sounds: Normal Tenderness: Nontender - Abdomen soft Organomegaly: No organomegaly - Back Back: Normal, Nontender - Extremities General upper extremity: Normal inspection General lower extremity: Normal inspection - Neurological Neuro grossly intact: Yes Orientation: AAOx4 [place] Coma Scale Eye Opening: Spontaneous Marvin Coma Scale Verbal: Oriented Marvin Coma Scale Motor: Obeys Commands Marvin Coma Scale Total: 15 - Psychological Associated symptoms: Normal affect, Normal mood - Skin Skin Temperature: Warm Skin Moisture: Dry Skin Color: Normal Course - Re-evaluation Re-evalutation: 10/25/19 00:03 Results of ED MSE discussed with patient. Lights and TV are on in room. Patient appears to be in no acute distress. Patient does not appear photophobic and moves her neck without evidence of meningismus. Results of ED MSE all reviewed with patient. All questions were answered prior to discharge. Patient was offered IV hydration IV medication and O2 by nonrebreather in to help her headache symptoms; patient refused this. Patient states she was okay with oral medications. Emergency signs and symptoms, reasons to return to the emergency department discussed with patient. - Vital Signs Vital signs: Temp Pulse Resp BP Pulse Ox 98.9 F 64 16 127/67 H 100 10/24/19 20:47 10/24/19 20:47 10/24/19 20:47 10/24/19 20:47 10/24/19 20:47 - Laboratory Result Diagrams: 10/24/19 21:23 10/24/19 21:23 Laboratory results interpreted by me: 10/24/19 10/24/19 21:23 22:50 Sodium 135.7 L Urine Urobilinogen 2.0 H Ur Leukocyte Esterase TRACE H - Diagnostic Test Radiology reviewed: Reports reviewed Discharge - Discharge Clinical Impression: Migraine headache Qualifiers: Migraine type: unspecified Status migrainosus presence: without status migrainosus Intractability: not intractable Qualified Code(s): G43.909 - Migraine, unspecified, not intractable, without status migrainosus UTI (urinary tract infection) Qualifiers: Urinary tract infection type: site unspecified Hematuria presence: without hematuria Qualified Code(s): N39.0 - Urinary tract infection, site not specified Condition: Stable Disposition: HOME, SELF-CARE Instructions: Headache ([facility]), Urinary Tract Infection ([facility]) Additional Instructions: Return to the Emergency Department without delay if any worse. HOME CARE INSTRUCTIONS & INFORMATION: Thank you for choosing us for your medical needs. We hope you're satisfied with the care you received. After you leave, you must properly care for your problem and, at the same time, observe its progress. Any condition can change. Some illnesses can change rapidly over hours or days. If your condition worsens, return to the Emergency Department or see your physician promptly. ABOUT YOUR X-RAYS AND EKG'S: If you had an EKG or X-rays taken, they have been read by the Emergency Physician. The X-rays and EKG's will also be read by a Radiologist or Chemical Etch Operator within 24 hours. If discrepancies are noted, you will be notified by telephone. Please be certain the ED has a correct telephone number & address where you can be reached. Also, realize that some fractures or abnormalities do not show up on initial X-rays. If your symptoms continue, see your physician. ABOUT YOUR LABORATORY TEST: If you had laboratory tests, the results have been reviewed by the Emergency Physician. Some test results (for example cultures) may not be available for several days. You will be contacted if any test result shows you need additional treatment. Please be certain the ED has a correct telephone number and address where you can be reached. ABOUT YOUR MEDICATIONS: You will receive instructions on how to take your medicine on the prescription label you receive. Additional information may be provided by the Pharmacy. If you have questions afterwards, call the ED for clarification or further instructions. Some prescribed medications may cause drowsiness. Do not perform tasks such as driving a car or operating machinery without consulting your Pharmacist. If you feel you need a refill of pain medication, your condition will need re-evaluation. Please do not call for a refill of any medication. ABOUT YOUR SIGNATURE: Signature of this document acknowledges to followin. Understanding that you received emergency treatment and that you may be released before al medical problems are known or treated. Please be certain the ED has a correct phone number & address where you can be reached. 2. Acknowledgement that you will arrange for follow-up care as recommended. 3. Authorization for the Emergency Physician to provide information to your follow-up Physician in order to maximize your care. AT ANY TIME, IF YOUR SYMPTOMS CHANGE SIGNIFICANTLY OR WORSEN OR YOU DEVELOP NEW SYMPTOMS, RETURN TO THE EMERGENCY DEPARTMENT IMMEDIATELY FOR RE-EVALUATION. OUR GOAL IS TO PROVIDE EXCELLENT MEDICAL CARE! WE HOPE THAT WE HAVE MET YOUR EXPECTATIONS DURING YOUR EMERGENCY DEPARTMENT VISIT AND THAT YOU FEEL YOU HAVE RECEIVED EXCELLENT CARE! Prescriptions: Nitrofurantoin Monohyd/M-Cryst [Macrobid 100 mg Capsule] 100 mg PO BID #14 cap Referrals: MARGE MUNSON FNP [Primary Care Provider] - Follow up as needed I personally performed the services described in the documentation, reviewed and edited the documentation which was dictated to the scribe in my presence, and it accurately records my words and actions.
== END 2019-10-25 00:30 | disposition home or self-care (01) ==
LOC: ER 19:41
DX: G43.909 Migraine, unspecified, not intractable, without status migrainosus (principal); N39.0 Urinary tract infection, site not specified; R11.0 Nausea; Z88.2 Allergy status to sulfonamides
CPT/HCPCS: 99284; 36415; 85025; 80053; 81001; 70450; J8499

== ENCOUNTER → 2019-11-07 | Outpatient (CLI) | payer OTHER ==
--- NOTE | 2019-11-12 11:08 | WOMENS IMAGING REPORT ---
EXAM DESCRIPTION: 3D SCREENING MAMMO BILAT IMAGES COMPLETED DATE/TIME: 11/07/2019 9:33 am REASON FOR STUDY: Z12.31 ENCOUNTER FOR SCREENING MAMMOGRAM FOR MALIGNANT NEOPLASM OF BREAST Z12.31 ENCNTR SCREEN MAMMOGRAM FOR MALIGNANT NEOPLASM OF [place] G44.52 NEW DAILY PERSISTENT HEADACHE ([facility]) COMPARISON: 09/27/2018, 05/19/2019, 05/09/2019 EXAM PARAMETERS: Views: Standard craniocaudal and mediolateral oblique views of each breast recorded using digital acquisition and breast tomosynthesis. Read with the assistance of CAD. .[facility] - [employer] Version 9.2 LIMITATIONS: None. FINDINGS: No suspicious masses, suspicious calcifications or architectural distortion. No areas of c oncern. IMPRESSION: NEGATIVE MAMMOGRAM. BIRADS 1. BREAST DENSITY: b. There are scattered areas of fibroglandular density. BIRAD: ASSESSMENT: 1 NEGATIVE RECOMMENDATION: ROUTINE SCREENING COMMENT: The patient has been notified of the results by letter per [place] requirements. Additional no tification policies are in place for contacting patient with suspicious or incomplete findings. Quality ID #[id number]: The [employer] recommends an annual screening mammogram for women aged 40 years or over. This facility utilizes a reminder system to ensure that all patients receive reminder letters, and/or direct phone calls for appointments. This includes reminders for routine scr eening mammograms, diagnostic mammograms, or other Breast Imaging Interventions when appropriate. Th is patient will be placed in the appropriate reminder system. TECHNICAL DOCUMENTATION: FINDING NUMBER: (1) ASSESSMENT: (1) JOB ID: [id number] 2010 [employer]- All Rights Reserved Reading location - IP/workstation name: [email or web address]
== END ==
LOC: WI 08:05
PROVIDERS: ATTEND Nurse Practitioner Family
DX: Z12.31 Encounter for screening mammogram for malignant neoplasm of breast (principal)
CPT/HCPCS: 77063; 77067